=== PATIENT | male | born 1985 | race Two or more races ===

== ENCOUNTER 2019-01-21 01:53 | Emergency (ER) | payer BC ==
[2019-01-21 03:27] VITALS: TEMP 98.2; BMI 20.5
--- NOTE | 2019-01-21 03:41 | PDOC ---
History of Present Illness - General Chief Complaint: Pain, Acute Stated Complaint: PAIN Time Seen by Provider: 01/21/19 03:41 History Source: Patient - History of Present Illness Initial Comments: 01/21/19 04:10 33 year old male c/o left flank pain radiating to left lower quadrant since 9.30 pm. denies urinary symptoms , testicular pain, nausea/ vomiting, hematuria PMHX: left parotid mass resection 2013 Past History - Past Medical History Allergies/Adverse Reactions: Allergies Allergy/AdvReac Type Severity Reaction Status Date / Time No Known Allergies Allergy Verified 01/21/19 03:28 Home Medications: Ambulatory Orders Doxycycline Monohydrate [Monodox] 100 mg PO Q12H #20 capsule 01/21/19 Ibuprofen [Motrin -] 600 mg PO QID PRN #28 tablet 01/21/19 Tamsulosin HCl [Flomax] 0.4 mg PO DAILY #10 cap.er.24h 01/21/19 - Suicide/Smoking/Psychosocial Hx Smoking History: Never smoked Hx Alcohol Use: No Drug/Substance Use Hx: No Review of Systems - Review of Systems Able to Perform ROS?: Yes Is the patient limited Green[place]ic proficient: No Constitutional: No: Symptoms Reported, See HPI, Chills, Diaphoresis, Fever, Loss of Appetite, Malaise, Night Sweats, Weakness, Weight Stable, Unintentional Wgt. Loss, Unexplained wgt Loss, Other ABD/GI: Yes: Abdominal cramping. No: Symptoms Reported, See HPI, Abdominal Distended, Abd. Pain w/ defecation, Blood Streaked Bowels, Constipated, Diarrhea , Difficulty Swallowing, Nausea, Poor Appetite, Poor Fluid Intake, Rectal Bleeding, Vomiting, Indigestion, Tarry Stools, Other : Yes: Flank Pain *Physical Exam - Vital Signs Last Vital Signs Temp Pulse Resp BP Pulse Ox 98.2 F 64 17 114/52 L 97 01/21/19 01:53 01/21/19 01:53 01/21/19 01:53 01/21/19 01:53 01/21/19 01:53 - Physical Exam General Appearance: Yes: Appropriately Dressed Respiratory/Chest: positive: Lungs Clear, Normal Breath Sounds Cardiovascular: positive: Regular Rhythm, Regular Rate Gastrointestinal/Abdominal: positive: Normal Bowel Sounds, Tender (LLQ), Soft Male Genitalia: positive: normal genitalia. negative: testicular tenderness Musculoskeletal: positive: Normal Inspection Extremity: positive: Normal Capillary Refill, Normal Inspection, Normal Range of Motion Integumentary: positive: Normal Color, Dry, Warm Heart Score/ECG Review - ECG Intrepretation Rhythm: Regular Rhythm Comment:: 01/21/19 07:03 low voltage qrs Sinus bradycardia 51 ED Treatment Course - LABORATORY CBC & Chemistry Diagram: 01/21/19 04:15 01/21/19 04:15 Progress Note - Progress Note Progress Note: A: Left flank pain P: cbc cmp UA urine culture spiral CT: imcidental finding and cardiology / urology follow up given to patient Medical Decision Making - Medical Decision Making 01/21/19 06:36 CAT scan report: Positive for 2.3 mm distal left ureteral stone at the left UVJ this causes mild left hydronephrosis eyes hydroureter. Questionable slightly enlarged left peritoneal lymph nodes at the level of the left kidney. Mildly enlarged prostate and slightly enlarged lobulated seminal vesicles large pericardial effusion measuring up to 4 cm mild atelectasis changes to the left lung base cardiomegaly. Patient has no chest pain at this time. And no shortness of breath. No history of cardiomegaly. Incidental findings of the CAT scan report iscussed with patient and patient to follow up with cardiology on the outpatient side. Strict return precautions also reviewed with patient. Patient is supposed to follow up with urology for obstructed stone. We will send Flomax will treat for questionable prostatitis. Patient reports that he has been sexually active with no exposure to STI. *DC/Admit/Observation/Transfer Diagnosis at time of Disposition: Acute left flank pain, Renal stone, Cardiomegaly - Discharge Dispostion Disposition: HOME Condition at time of disposition: Fair - Prescriptions Prescriptions: Doxycycline Monohydrate [Monodox] 100 mg PO Q12H #20 capsule Ibuprofen [Motrin -] 600 mg PO QID PRN #28 tablet PRN Reason: Pain Tamsulosin HCl [Flomax] 0.4 mg PO DAILY #10 cap.er.24h - Referrals Referrals: Marin Washington MD [Staff Physician] - Call tomorrow Jeet Ayoub MD [Staff Physician] - Call tomorrow - Patient Instructions Printed Discharge Instructions: Kidney Stones -- Adult Additional Instructions: Drink plenty of fluids Take Flomax as prescribed Take ibuprofen every 6 hours as needed for moderate pain take doxycycline as prescribed. Follow-up with a urologist as soon as possible Return to the emergency room if symptoms worsen - Post Discharge Activity Forms/Work/School Notes: Back to Work
--- NOTE | 2019-01-21 03:46 | PDOC ---
*Physical Exam - Vital Signs Last Vital Signs Temp Pulse Resp BP Pulse Ox 98.2 F 64 17 114/52 L 97 01/21/19 01:53 01/21/19 01:53 01/21/19 01:53 01/21/19 01:53 01/21/19 01:53 ED Treatment Course - LABORATORY CBC & Chemistry Diagram: 01/21/19 04:15 01/21/19 04:15 Medical Decision Making - Medical Decision Making 01/21/19 03:45 Patient seen by the advanced practice provider under my direct supervision. Ancillary testing reviewed as necessary. I agree with plan as outlined by the advanced practice provider. *DC/Admit/Observation/Transfer Diagnosis at time of Disposition: Acute left flank pain - Discharge Dispostion Condition at time of disposition: Fair - Referrals - Patient Instructions - Post Discharge Activity
[2019-01-21] MEDS ORDERED: SODIUM CHLORIDE 1,000 ML IV STA ×2 (03:55→05:31)
[2019-01-21] MEDS ORDERED: KETOROLAC TROMETHAMINE 30 MG/1 ML VIAL IVPUSH ONE (03:55)
[2019-01-21] MEDS ORDERED: KETOROLAC TROMETHAMINE 30 MG/1 ML VIAL ONE (04:18)
[2019-01-21 04:29] LABS: HEMOGLOBIN 14.3 GM/dL (11.7-16.9); MEAN PLT VOLUME 9.6 fl (7.5-11.1)
[2019-01-21 04:34] LABS: URINE APPEARANCE CLEAR; URINE BILIRUBIN NEGATIVE (NEGATIVE); URINE COLOR YELLOW; URINE GLUCOSE (UA) NEGATIVE (NEGATIVE); URINE KETONE NEGATIVE (NEGATIVE); URINE LEUK ESTERASE NEGATIVE (NEGATIVE); URINE NITRITE NEGATIVE (NEGATIVE); URINE PROTEIN NEGATIVE (NEGATIVE); URINE UROBILINOGEN 0.2 mg/dL (0.2-1.0)
[2019-01-21 04:36] LABS: BASO % 0.5 % (0-2.0); EOS % 1.3 % (0-4.5); HEMATOCRIT 42.9 % (35.4-49); LYMPH % 8.4 % (8-40); MCH 28.9 pg (25.7-33.7); MCHC 33.5 g/dl (32.0-35.9); MEAN CELL VOLUME 86.5 fl (80-96); MONO % 8.2 % (3.8-10.2); NEUT % 81.6 % (42.8-82.8); PLATELET COUNT 235 K/MM3 (134-434); RBC 4.96 M/mm3 (4.00-5.60)
[2019-01-21 05:04] LABS: ALBUMIN 4.3 g/dl (3.4-5.0); BILIRUBIN,TOTAL 0.6 mg/dL (0.2-1); BLOOD UREA NITROGEN 21.2 mg/dL (7-18); CALCIUM 9.1 mg/dL (8.5-10.1); CREATININE 1.4 mg/dL (0.55-1.3); POTASSIUM 4.8 mmol/L (3.5-5.1); TOT PROT 7.8 g/dl (6.4-8.2)
[2019-01-21] MEDS ORDERED: TAMSULOSIN HCL 0.4 MG CAP PO ONE (06:19)
[2019-01-21] MEDS ORDERED: TAMSULOSIN HCL 0.4 MG CAP ONE (06:41)
[2019-01-21 06:47] VITALS: BP 110/72; PULSE 58
--- NOTE | 2019-01-21 13:39 | EKG ---
Test Reason : Blood Pressure : / mmHG Vent. Rate : 051 BPM Atrial Rate : 051 BPM P-R Int : 136 ms QRS Dur : 068 ms QT Int : 418 ms P-R-T Axes : 038 085 077 degrees QTc Int : 385 ms SINUS BRADYCARDIA LOW VOLTAGE QRS BORDERLINE ECG NO PREVIOUS ECGS AVAILABLE Confirmed by Joel Macdonald MD ([id number]) on 01/21/2019 1:38:56 PM Referred By: Confirmed By:Joel Macdonald MD
== END 2019-01-21 07:07 | disposition home or self-care (01) ==
LOC: JER 01:53
PROC: 3E0333Z Introduction of Anti-inflammatory into Peripheral Vein, Percutaneous Approach (ICD-10-PCS; principal; 2019-01-21)
PROC: 3E0337Z Introduction of Electrolytic and Water Balance Substance into Peripheral Vein, Percutaneous Approach (ICD-10-PCS; 2019-01-21)
DX: R10.9 Unspecified abdominal pain (principal); N20.0 Calculus of kidney; I51.7 Cardiomegaly
CPT/HCPCS: 36415; 74176-TC; 80053; 81003; 85025; 87086; 93005; 93010; 99283-25; J7030